=== PATIENT | female | born 1995 | race African-American/Black ===

== ENCOUNTER 2025-01-18 10:40 | Outpatient (CLI) | payer MEDICAID ==
--- NOTE | 2025-01-18 17:10 | CARDIOLOGY REPORT ---
APPROVED REPORT EXAM: Comprehensive 2D, Doppler, and color-flow Echocardiogram. Patient Location: OUT-PATIENT Blood Pressure: 169 / 92 mmHg Heart Rate: 90-100 bpm Rhythm: SINUS Indications EVALUATE PULMONIC STENOSIS PULMONIC STENOSIS (DX AGE 10) HYPERTENSION School Psychologist: Rob Segura MD Previous echo: 09/09/23 AD BVC EF: 65%; PV: (PVA: NR; PKV: 3.78; GRAD: 60/34; RVOT: NR; mPI, INC AOdesc VELO) 2D Dimensions RVDd 2.9 cm LA Diam 4.5 cm LVOT Diameter 1.90 (1.8-2.4cm) M-Mode Dimensions Left Atrium(MM) 2.73 (2.5-4.0cm) IVSd 0.76 (0.7-1.1cm) LVDd 4.14 (4.0-5.6cm) Aortic Root 3.08 (2.2-3.7cm) PWd 0.92 (0.7-1.1cm) Aortic Cusp Exc 2.00 (1.5-2.0cm) IVSs 1.14 cm MV EPSS 0.1 (<0.5cm) LVDs 2.65 (2.0-3.8cm) FS (%) 36 % PWs 1.30 cm ESV(Teich) 25.8 ml LVEF(%) 66 (>50%) Aortic Valve AoV Peak Brando. 164.7 cm/s AoV VTI 30.7 cm AO Peak GR. 11.0 mmHg AO Mean GR. 5 mmHg LVOT VTI 25.67 cm LVOT Peak Brando. 133.2 cm/s LINDY (VTI) 2.38 cm2 Mitral Valve MV E Velocity 127.9 cm/s MV DECEL TIME 122 ms MV A Velocity 70.8 cm/s MV PHT 41 ms E/A Ratio 1.8 MVA (PHT) 5.36 cm2 Pulmonary Valve PV Peak Velocity 380.9 cm/s PV Peak Grad. 58 mmHg RVOT VTI 27.0 cm RVOT Diam 1.8 cm PVA 0.75 cm2 Tricuspid Valve TR P. Velocity 243 cm/s RAP ESTIMATE 10 mmHg TR Peak Gr. 24 mmHg RVSP 34 mmHg Pulmonary Vein S2 Velocity 65.53 cm/s PVa Duration 71 msec LEFT VENTRICLE Normal LV size and wall thickness. Overall systolic function is normal. LVEF is 65%. RIGHT VENTRICLE RV is normal size and function. RVSP 34mmHG. ATRIA The left atrium size is normal. Thickened, hyperechoic, mobile interatrial septum - no flow detected. AORTIC VALVE ? Bicuspid / malformed AV appears unusual, thickened, and sclerotic without stenosis or insufficiency. MITRAL VALVE Normal MV annulus and leaflets without stenosis. Trace regurgitation. TRICUSPID VALVE TV appears structurally normal with trace regurgitation. PULMONIC VALVE Thickened, irregular PV leaflets with high moderate stenosis. PVA: 0.75 cmsq; Pkv: 3.81 m/sec; Gradients: 56 / 37 mmHG. Trace insufficiency. (slight progression from 09/16 exam). GREAT VESSELS Aortic root is normal in size. Ascending aorta is normal in size with increased velocities of 2.85 m/sec, irregular, grossly normal sized AO arch poorly visualized with increased velocities throughout. Descending aorta is abnormal in size, appears puny (0.9cm) with velocity of 3.35 m /sec. Abdominal AO appears normal size with normal flow. Main pulmonary artery is failry visualized and normal sized with increased velocities. MPA bifrucation appears normal size with normal, laminar flow detected (loop 97). The IVC is normal in size and collapses >50% with inspiration. PERICARDIUM Normal pericardium. No effusion. Prominent anterior epicardial fat pad seen apically. Other Information Study Quality: Adequate Further Testing Further Testing : Recommend MARIIA or CT imaging for anatomic clarity if indicated or required pre intervention. Conclusion Normal LV size and wall thickness. Overall systolic function is normal. LVEF is 65%. RV is normal size and function. RVSP 34mmHG. The left atrium size is normal. Thickened, hyperechoic, mobile interatrial septum - no flow detected. ?Bicuspid / malformed AV appears unusual, thickened, and sclerotic without stenosis or insufficiency. Normal MV annulus and leaflets without stenosis. Trace regurgitation. TV appears structurally normal with trace regurgitation. Thickened, irregular PV leaflets with high moderate stenosis. PVA: 0.75 cmsq; Pkv: 3.81 m/sec; Gradients: 56 / 37 mmHG. Trace insufficiency. (slight progression from 09/16 exam). Ascending aorta is normal in size with increased velocities of 2.85 m/sec, irregular, grossly normal sized AO arch poorly visualized with increased velocities throughout. Descending aorta is abnormal in size, appears puny (0.9cm) with velocity of 3.35 m /sec. Abdominal AO appears normal size with normal flow. Main pulmonary artery is failry visualized and normal sized with increased velocities. MPA bifrucation appears normal size with normal, laminar flow detected (loop 97). Normal pericardium. No effusion. Prominent anterior epicardial fat pad seen apically.
== END 2025-01-18 23:59 | disposition home or self-care (01) ==
LOC: CARD DIAG 10:40
PROVIDERS: ATTEND Internal Medicine Interventional Cardiology
DX: I08.8 Other rheumatic multiple valve diseases (principal); I10 Essential (primary) hypertension; R01.1 Cardiac murmur, unspecified; I37.0 Nonrheumatic pulmonary valve stenosis; Q25.6 Stenosis of pulmonary artery
CPT/HCPCS: 93306